=== PATIENT | female | born 1990 | race African-American/Black ===

== ENCOUNTER 2018-12-09 11:54 | Emergency (ER) | payer OTHER ==
[2018-12-09 12:04] VITALS: BP 103/60; PULSE 77; TEMP 98.2; BMI 24.1
[2018-12-09] MEDS ORDERED: IBUPROFEN 400 MG TABLET (FP) PO ONE ×2 (12:30→12:31)
--- NOTE | 2018-12-09 12:38 | PDOC ---
History of Present Illness - General Chief Complaint: Toothache Stated Complaint: TOOTHACHE Time Seen by Provider: 12/09/18 12:16 History Source: Patient Exam Limitations: Clinical Condition - History of Present Illness Initial Comments: 12/09/18 12:30 Patient with history of dental cavities to left lower molar and was told by dentist in need of extraction present with complaint of worsening tooth pain for the past 2 weeks with worsening pain overnight yesterday. Patient report dentist attempted to extract to by was so painful and patient could not tolerate the pain and patient reported appointment was scheduled for 2 months for extraction. Denies fever, chills or swelling of face. denies any other symptoms Timing/Duration: other (2 weeks) Past History - Past Medical History Allergies/Adverse Reactions: Allergies Allergy/AdvReac Type Severity Reaction Status Date / Time No Known Allergies Allergy Verified 12/09/18 12:03 Home Medications: Ambulatory Orders Amox-Tr/K Cl [Augmentin - 875Mg Tablet] 1 tab PO BID #14 tablet 12/09/18 Ibuprofen 800 mg PO Q8H PRN #20 tablet 12/09/18 - Suicide/Smoking/Psychosocial Hx Smoking History: Never smoked Review of Systems - Review of Systems Able to Perform ROS?: Yes Is the patient limited Sen[place]e proficient: No Constitutional: No: Chills, Fever HEENTM: Yes: Symptoms Reported, See HPI, Dental Problems. No: Eye Pain, Blurred Vision, Tearing, Recent change in vision, Double Vision, Cataracts, Ear Pain, Ocular Prothesis, Ear Discharge, Nose Pain, Nose Congestion, Tinnitus, Nose Bleeding, Hearing Loss, Throat Pain, Throat Swelling, Mouth Pain, Difficulty Swallowing, Mouth Swelling, Other Respiratory: No: Symptoms reported, See HPI, Cough, Orthopnea, Shortness of Breath, SOB with Exertion, SOB at Rest, Stridor, Wheezing, Productive cough, Hemoptysis, Other Cardiac (ROS): No: Symptoms Reported, See HPI, Chest Pain, Edema, Irregular Heart Rate, Lightheadedness, Palpitations, Syncope, Chest Tightness, Other ABD/GI: No: Nausea, Vomiting All Other Systems: Reviewed and Negative *Physical Exam - Vital Signs Last Vital Signs Temp Pulse Resp BP Pulse Ox 98.2 F 77 16 103/60 99 12/09/18 12:03 12/09/18 12:03 12/09/18 12:03 12/09/18 12:03 12/09/18 12:03 - Physical Exam Comments: 12/09/18 12:43 GENERAL: Well developed, well nourished. Awake and alert. No acute distress. HEENT: Mild decayed left lower back molar tooth. No periodontal swelling or erythema. Normocephalic, atraumatic. PERRLA, EOMI. No conjunctival pallor. Sclera are non-icteric. Moist mucous membranes. Oropharynx is clear. NECK: Supple. Full ROM. CARDIOVASCULAR: Regular rate and rhythm. No murmurs, rubs, or gallops. Distal pulses are 2+ and symmetric. PULMONARY: No evidence of respiratory distress. Lungs clear to auscultation bilaterally. No wheezing, rales or rhonchi. ABDOMINAL: Soft. Non-tender. Non-distended. No rebound or guarding. No organomegaly. Normoactive bowel sounds. MUSCULOSKELETAL Normal range of motion at all joints. SKIN: Warm and dry. No rashes. No jaundice. NEUROLOGICAL: Alert, awake, appropriate. Gait is normal without ataxia. PSYCHIATRIC: Cooperative. Good eye contact. Appropriate mood General Appearance: Yes: Nourished, Appropriately Dressed, Mild Distress Moderate Sedation - Procedure Monitoring Vital Signs: Procedure Monitoring Vital Signs Temperature 98.2 F 12/09/18 12:03 Pulse Rate 77 12/09/18 12:03 Respiratory Rate 16 12/09/18 12:03 Blood Pressure 103/60 12/09/18 12:03 O2 Sat by Pulse Oximetry (%) 99 12/09/18 12:03 Medical Decision Making - Medical Decision Making 12/09/18 12:45 Patient with no significant past medical history isn't with complaint of 2 weeks history of lower left tooth pain to has been worsening the last 24 hours. Patient was seen by dentist for tooth problem was told to needed extraction back could not be done as patient could not tolerate pain. Exam significant for decayed left back lower molar tooth with no periodontal swelling or erythema. Ibuprofen 800 milligrams by mouth given for pain. Patient is stable for discharge on Augmentin for 1 week and ibuprofen as needed for pain and advised to follow back with dentist for follow-up care as soon as possible. *DC/Admit/Observation/Transfer Diagnosis at time of Disposition: Pain, dental, Dental caries - Discharge Dispostion Disposition: HOME Condition at time of disposition: Stable Decision to Admit order: No - Prescriptions Prescriptions: Amox-Tr/K Cl [Augmentin - 875Mg Tablet] 1 tab PO BID #14 tablet Ibuprofen 800 mg PO Q8H PRN #20 tablet PRN Reason: pain - Referrals - Patient Instructions Printed Discharge Instructions: DI for Tooth Decay Additional Instructions: Take medications as prescribed. Follow-up with dental as soon as possible for follow-up care. Call dental office on Tuesday to make immediate follow-up appointment. - Post Discharge Activity
== END 2018-12-09 12:40 | disposition home or self-care (01) ==
LOC: JERFT 11:54
DX: K02.9 Dental caries, unspecified (principal)
CPT/HCPCS: 99281-25

== ENCOUNTER 2019-08-08 11:40 | Emergency (ER) | payer OTHER ==
[2019-08-08] MEDS ORDERED: SODIUM CHLORIDE 1,000 ML IV STA (11:43)
--- NOTE | 2019-08-08 11:43 | PDOC ---
Rapid Medical Evaluation Time Seen by Provider: 08/08/19 11:41 Medical Evaluation: Allergies Allergy/AdvReac Type Severity Reaction Status Date / Time No Known Allergies Allergy Verified 12/09/18 12:03 08/08/19 11:42 CC: abdominal pain. LMP 07/16 PE: Abd benign. Orders: urine, labs Patient will proceed to ER for continued evaluation. Discharge Disposition - Diagnosis Periumbilical abdominal cramping - Referrals - Patient Instructions - Post Discharge Activity
[2019-08-08 11:46] VITALS: BP 128/53; PULSE 85; TEMP 97.9; BMI 21.6
[2019-08-08 12:15] LABS: BASO % 0.9 % (0-2.0); HEMATOCRIT 29.2 % (32.4-45.2); LYMPH % 36.7 % (8-40); MCH 25.8 pg (25.7-33.7); MCHC 34.2 g/dl (32.0-36.0); MEAN CELL VOLUME 75.5 fl (80-96); MEAN PLT VOLUME 7.2 fl (7.5-11.1); MONO % 10.2 % (3.8-10.2); NEUT % 49.2 % (42.8-82.8); PLATELET COUNT 179 K/MM3 (134-434); RBC 3.87 M/mm3 (3.60-5.2); RDW 15.1 % (11.6-15.6); WHITE BLOOD COUNT 7.3 K/mm3 (4.0-10.0)
[2019-08-08 12:34] LABS: ALBUMIN 3.7 g/dl (3.4-5.0); BILIRUBIN,TOTAL 1.1 mg/dL (0.2-1); BLOOD UREA NITROGEN 12.5 mg/dL (7-18); CALCIUM 9.1 mg/dL (8.5-10.1); CREATININE 0.8 mg/dL (0.55-1.3); POTASSIUM 3.8 mmol/L (3.5-5.1); TOT PROT 8.2 g/dl (6.4-8.2)
[2019-08-08 12:39] LABS: PH,URINE 5.5 (5.0-8.0); URINE APPEARANCE CLEAR; URINE BILIRUBIN NEGATIVE (NEGATIVE); URINE COLOR YELLOW; URINE GLUCOSE (UA) NEGATIVE (NEGATIVE); URINE KETONE NEGATIVE (NEGATIVE); URINE LEUK ESTERASE NEGATIVE (NEGATIVE); URINE NITRITE NEGATIVE (NEGATIVE); URINE PROTEIN NEGATIVE (NEGATIVE)
--- NOTE | 2019-08-08 14:27 | PDOC ---
History of Present Illness - General Chief Complaint: Pain Stated Complaint: ABD. PAIN Time Seen by Provider: 08/08/19 11:41 History Source: Patient Exam Limitations: No Limitations Past History - Travel Traveled outside of the country in the last 30 days: No Close contact w/someone who was outside of country & ill: No - Past Medical History Allergies/Adverse Reactions: Allergies Allergy/AdvReac Type Severity Reaction Status Date / Time No Known Allergies Allergy Verified 08/08/19 11:46 COPD: No - Psycho Social/Smoking Cessation Hx Smoking History: Never smoked Information on smoking cessation initiated: No Hx Alcohol Use: No Drug/Substance Use Hx: No Review of Systems - Review of Systems Able to Perform ROS?: Yes Comments:: 08/08/19 14:21 CONSTITUTIONAL: Absent: fever, chills, diaphoresis, generalized weakness, malaise, loss of appetite HEENT: Absent: rhinorrhea, nasal congestion, throat pain, throat swelling, difficulty swallowing, mouth swelling, ear pain, eye pain, visual Changes CARDIOVASCULAR: Absent: chest pain, loss of consciousness, palpitations, irregular heart rate, peripheral edema RESPIRATORY: Absent: cough, shortness of breath, dyspnea with exertion, orthopnea, wheezing, stridor, hemoptysis GASTROINTESTINAL: Present: lower abdominal pain Absent: abdominal distension, nausea, vomiting, diarrhea, constipation, melena, hematochezia GENITOURINARY: Absent: dysuria, frequency, urgency, hesitancy, hematuria, flank pain, genital pain MUSCULOSKELETAL: Absent: myalgia, arthralgia, joint swelling SKIN: Absent: rash, itching, pallor HEMATOLOGIC/IMMUNOLOGIC: Absent: easy bleeding, easy bruising, lymphadenopathy, frequent infections ENDOCRINE: Absent: unexplained weight gain, unexplained weight loss, heat intolerance, cold intolerance NEUROLOGIC: Absent: headache, focal weakness or paresthesias, dizziness, unsteady gait, seizure, mental status changes, bladder or bowel incontinence PSYCHIATRIC: Absent: anxiety, depression, suicidal or homicidal ideation, hallucinations. Is the patient limited Moh[place] proficient: No *Physical Exam - Vital Signs Last Vital Signs Temp Pulse Resp BP Pulse Ox 97.9 F 85 17 128/53 L 99 08/08/19 11:42 08/08/19 11:42 08/08/19 11:42 08/08/19 11:42 08/08/19 11:42 - Physical Exam Comments: 08/08/19 14:21 GENERAL: Well developed, well nourished. Awake and alert. No acute distress. HEENT: Normocephalic, atraumatic. PERRLA, EOMI. No conjunctival pallor. Sclera are non- icteric. Moist mucous membranes. Oropharynx is clear. NECK: Supple. Full ROM. No JVD. Carotid pulses 2+ and symmetric, without bruits. No thyromegaly. No lymphadenopathy. PULMONARY: No evidence of respiratory distress. Lungs clear to auscultation bilaterally. No wheezing, rales or rhonchi. ABDOMINAL: TTP of the LLQ and suprapubic region. Soft. Non-distended. No rebound or guarding. No organomegaly. Normoactive bowel sounds. MUSCULOSKELETAL Normal range of motion at all joints. No bony deformities or tenderness. No CVA tenderness. EXTREMITIES: No cyanosis. No clubbing. No edema. No calf tenderness. SKIN: Warm and dry. Normal capillary refill. No rashes. No jaundice. NEUROLOGICAL: Alert, awake, appropriate. Cranial nerves 2-12 intact. No deficits to light touch and temperature in face, upper extremities and lower extremities. No motor deficits in the in face, upper extremities and lower extremities. Normoreflexic in the upper and lower extremities. Normal speech. Toes are down- going bilaterally. Gait is normal without ataxia. PSYCHIATRIC: Cooperative. Good eye contact. Appropriate mood and affect. ED Treatment Course - LABORATORY CBC & Chemistry Diagram: 08/08/19 12:07 08/08/19 12:07 - ADDITIONAL ORDERS Additional order review: Laboratory Results 08/08/19 08/08/19 08/08/19 12:15 12:07 12:07 Sodium Potassium Chloride Carbon Dioxide Anion Gap BUN Creatinine Est GFR (CKD-EPI)AfAm Est GFR (CKD-EPI)NonAf Random Glucose Calcium Total Bilirubin AST ALT Alkaline Phosphatase Total Protein Albumin Lipase Cancelled Serum , Qual Negative Urine Color Yellow Urine Appearance Clear Urine pH 5.5 Ur Specific [place] 1.013 Urine Protein Negative Urine Glucose (UA) Negative Urine Ketones Negative Urine Blood Negative Urine Nitrite Negative Urine Bilirubin Negative Urine Urobilinogen 1.0 Ur Leukocyte Esterase Negative 08/08/19 12:07 Sodium 139 Potassium 3.8 Chloride 108 H Carbon Dioxide 28 Anion Gap 4 L BUN 12.5 Creatinine 0.8 Est GFR (CKD-EPI)AfAm 116.28 Est GFR (CKD-EPI)NonAf 100.33 Random Glucose 84 Calcium 9.1 Total Bilirubin 1.1 H AST 34 ALT 29 Alkaline Phosphatase 89 Total Protein 8.2 Albumin 3.7 Lipase 106 Serum , Qual Urine Color Urine Appearance Urine pH Ur Specific [place] Urine Protein Urine Glucose (UA) Urine Ketones Urine Blood Urine Nitrite Urine Bilirubin Urine Urobilinogen Ur Leukocyte Esterase 08/08/19 12:07 RBC 3.87 MCV 75.5 L MCHC 34.2 RDW 15.1 MPV 7.2 L Neutrophils % 49.2 Lymphocytes % 36.7 Monocytes % 10.2 Eosinophils % 3.0 Basophils % 0.9 - RADIOLOGY Radiology Studies Ordered: Category Date Time Status TRANSVAGINAL ULTRASOUND US [US] Stat Ultrasound 08/08/19 12:31 Completed - Medications Given in the ED: ED Medications Discontinued Medications Generic Name Dose Route Start Last Admin Trade Name Freq PRN Reason Stop Dose Admin Sodium Chloride 1,000 mls @ 1,000 mls/hr 08/08/19 11:43 08/08/19 12:12 Normal Saline - IV 08/08/19 12:42 1,000 mls/hr ASDIR STA Administration Medical Decision Making - Medical Decision Making 08/08/19 14:22 The patient is a 29-year-old female with no past medical history who presents to the ER today for lower abdominal pain since yesterday. She states that the pain is mostly on the left lower side however her whole abdomen feels sore. She states her last menstrual cycle was 07/13/2019; however, it was shorter than her usual cycle. She is concerned she might be . Denies fevers, chills, sore throat, earache, difficulty breathing, chest pain, nausea, vomiting , diarrhea, constipation and urinary symptoms. A/P: Left lower abdominal pain On exam patient tender to the left lower quadrant/left adnexal region. Abdomen is diffusely tender. Basic labs, urine ordered Urine is negative. Given abdominal findings; transvaginal ultrasound was ordered. TVUS shows a left simple ovarian cyst measuring 2 x 1.4 cm. Lab work is grossly normal, no white blood cell count. H&H stable. No electrolyte abnormalities. Urine is negative for infection Suspect the pain is due to the ovarian cyst. We will discharge home at this time with OB follow-up and symptomatic relief. I discussed the physical exam findings, ancillary test results and final diagnoses with the patient. I answered all of the patient's questions. The patient was satisfied with the care received and felt comfortable with the discharge plan and treatment plan. The Patient agrees to follow up with the primary care physician/specialist within 24-72 hours. Return precautions were given. Discharge - Discharge Information Problems reviewed: Yes Clinical Impression/Diagnosis: Ovarian cyst Qualifiers: Laterality: left Qualified Code(s): N83.202 - Unspecified ovarian cyst, left side Condition: Stable Disposition: HOME - Admission No - Follow up/Referral Referrals: Vidal Napier MD [Primary Care Provider] - Gloria De La Rosa MD [Staff Physician] - - Patient Discharge Instructions Patient Printed Discharge Instructions: DI for Ovarian Cyst Additional Instructions: You have an ovarian cyst. This is most likely causing your pain today. You may take Motrin 600 mg every 6 hours as needed for pain. You may use warm compresses to the area to help. The pain should get better with your menstrual cycle. Please follow-up with [facility]PER[facility] this week. A referral has been provided for you. Return to the ER for worsening pain, fever, vomiting or if you have any changes in your symptoms. - Post Discharge Activity Work/Back to School Note: Back to Work
== END 2019-08-08 14:44 | disposition home or self-care (01) ==
LOC: JER 11:40
PROC: 3E0337Z Introduction of Electrolytic and Water Balance Substance into Peripheral Vein, Percutaneous Approach (ICD-10-PCS; principal; 2019-08-08)
DX: N83.202 Unspecified ovarian cyst, left side (principal)
CPT/HCPCS: 36415; 76830-TC; 80053; 81003; 83690; 84703; 85025; 87086; 96360; 99282-25; J7030